=== PATIENT | female | born 1990 ===

== ENCOUNTER 2022-06-01 13:36 | Inpatient (IN) | payer BC ==
[2022-06-01] MEDS ORDERED: ePHEDrine 50 MG/ML SDV IVPUSH PRN ×2 (13:44)
[2022-06-01] MEDS ORDERED: Phenylephrine HCl In 0.9% NaCl 1 MG/10 ML Vial IVPUSH PRN (13:44)
[2022-06-01] MEDS ORDERED: Ropivacaine HCl/PF 400 MG in Premix Bag 1 BAG EPIDUR SCH (13:45)
[2022-06-01] MEDS ORDERED: Phenylephrine HCl In 0.9% NaCl 1 MG/10 ML Vial IVPUSH SCH (13:45)
[2022-06-01] MEDS ORDERED: Oxytocin 10 Units/1 ML SDV ONE (13:50)
[2022-06-01] MEDS ORDERED: Oxytocin/0.9 % Sodium Chloride 30 UNIT/500 ML BAG ONE (13:56)
[2022-06-01] MEDS ORDERED: Lidocaine 1% 50 ML MDV ONE (13:58)
[2022-06-01] MEDS ORDERED: Methylergonovine 0.2 MG/1 ML Amp IM PRN (14:17)
[2022-06-01] MEDS ORDERED: Sodium Chloride 0.9% 20 ML SDV IV PRN (14:17)
[2022-06-01] MEDS ORDERED: Carboprost Tromethamine 250 MCG/1 ML Amp IM PRN (14:17)
[2022-06-01] MEDS ORDERED: Tranexamic Acid 1,000 MG in Sodium Chloride 0.9% 100 ML IV PRN (14:17)
[2022-06-01] MEDS ORDERED: Misoprostol 200 MCG Tab PO PRN (14:17)
[2022-06-01] MEDS ORDERED: Sodium Chloride 0.9% 2.5 ML Syringe FLUSH PRN (14:17)
[2022-06-01] MEDS ORDERED: Water For Irrigation,Sterile 1,000 ML Container IRR PRN (14:17)
[2022-06-01] MEDS ORDERED: Butorphanol 1 MG/ML SDV IVPUSH PRN (14:17)
[2022-06-01] MEDS ORDERED: Lidocaine 1% 50 ML MDV INJECT PRN (14:17)
[2022-06-01] MEDS ORDERED: Sodium Chloride 0.9% 10 ML Syringe FLUSH PRN (14:17)
[2022-06-01] MEDS ORDERED: Benzocaine/Menthol 20%-0.5% Spray 78 GM Cannister TOP PRN (14:19)
[2022-06-01] MEDS ORDERED: Lanolin 100% Cream 7 GM Tube TOP PRN (14:19)
[2022-06-01] MEDS ORDERED: Bisacodyl 10 MG Supp RECTAL PRN (14:19)
[2022-06-01] MEDS ORDERED: Docusate Sodium 100 MG Cap PO PRN (14:19)
[2022-06-01] MEDS ORDERED: Witch Hazel Medicated Pads 40/Jar TOP PRN (14:19)
[2022-06-01] MEDS ORDERED: Ibuprofen 400 MG Tab PO PRN (14:19)
[2022-06-01] MEDS ORDERED: Oxytocin/0.9 % Sodium Chloride 30 UNIT/500 ML BAG IV SCH (14:30)
[2022-06-01] MEDS ORDERED: Lactated Ringers 1,000 ML IV SCH (14:30)
[2022-06-01] MEDS: Acetaminophen 500 MG Tab PO PRN ×2 (14:57→22:23)
[2022-06-01] MEDS: Ibuprofen 800 MG Tab PO PRN ×2 (14:58→20:49)
[2022-06-02] MEDS: Acetaminophen 500 MG Tab PO PRN ×3 (02:20→15:55)
[2022-06-02] MEDS: Ibuprofen 800 MG Tab PO PRN ×2 (04:07→11:42)
== END 2022-06-02 16:13 | disposition home or self-care (01) | DRG 560 ==
LOC: MW.OB 13:36 → MW.OBCHECK 13:36 → MW.OB 13:50 → MW.OBCHECK 13:50 → MW.OB 16:30
PROVIDERS: ADMIT Obstetrics & Gynecology; ATTEND Obstetrics & Gynecology
PROC: 10E0XZZ Delivery of Products of Conception, External Approach (ICD-10-PCS; principal; 2022-06-01)
PROC: 0KQM0ZZ Repair Perineum Muscle, Open Approach (ICD-10-PCS; 2022-06-01)
DX: O62.3 Precipitate labor (principal); O70.1 Second degree perineal laceration during delivery; Z37.0 Single live birth; Z3A.39 39 weeks gestation of pregnancy; Z20.822 Contact with and (suspected) exposure to COVID-19
CPT/HCPCS: 36415; 59025; 59409; 85014; 85018; 85027; 86592; 86850; 86900; 86901; A9270-GY; J2001; J2590; U0002